=== PATIENT | male | born 2000 | race Caucasian/White ===

== ENCOUNTER 2025-08-17 10:13 | Emergency (ER) | payer OTHER ==
[2025-08-17 10:26] VITALS: RESP 16; TEMP 97.4; O2SAT 97
--- NOTE | 2025-08-17 10:34 | ERPHSYRPT ---
- History of Present Illness Time Seen by Provider: 08/17/25 10:18 Source: patient, family Exam Limitations: no limitations Patient Subjective Stated Complaint: pt was playing softball yesterday and states he dove for a ball, and when he hit ground had a sudden onset of pain to left shoulder Triage Nursing Assessment: pt alert, walked in, no distress, resp easy, skin w/w/p. tender to left shoulder,limited rom, has strong radial pulse Physician History: Patient is here with left shoulder pain. Patient was playing shortstop yesterday at softball. States that he dove for a ball on an outstretched arm. Foster his left shoulder "pop". Since that time he has had pain. He had limited range of motion. He has taken home medication for it. No other fevers, chills, nausea, vomiting. Otherwise in his normal state of health, up-to-date on his tetanus shot. Allergies/Adverse Reactions: No Known Drug Allergies Allergy (Unverified 08/17/25 10:18) Home Medications: No Reportable Medications [No Reported Medications] 08/17/25 [History] Hx Tetanus, Diphtheria Vaccination/Date Given: No Hx Influenza Vaccination/Date Given: No Hx Pneumococcal Vaccination/Date Given: No Immunizations Up to Date: Yes Travel Risk - International Travel Have you traveled outside of the country in past 3 weeks: No - Emerging Infectious Disease Are you exhibiting symptoms associated with any current EIDs: No - Past Medical History Pertinent Past Medical History: No - Past Surgical History Past Surgical History: No - Social History Smoking Status: Never smoker Exposure to second hand smoke: No Drug Use: none - Social Determinants of Health Will the patient participate in the screening: Declined to provide - Nursing Vital Signs Nursing Vital Signs: Initial Vital Signs Temperature 97.4 F 08/17/25 10:25 Pulse Rate 65 08/17/25 10:25 Respiratory Rate 16 08/17/25 10:25 Blood Pressure 131/82 08/17/25 10:25 O2 Sat by Pulse Oximetry 97 08/17/25 10:25 Pain Scale Pain Intensity 8 - Physical Exam SpO2: 97 Comments: 08/17/25 10:33 Review of Systems Constitutional: Negative for fever. HENT: Negative for congestion. Respiratory: Negative for shortness of breath. Cardiovascular: Negative for chest pain. Gastrointestinal: Negative for abdominal pain. Genitourinary: Negative for dysuria. Musculoskeletal: Negative for back pain. Skin: Negative for rash. Neurological: Negative for headaches. Psychiatric/Behavioral: Negative for behavioral problems. All other systems reviewed and are negative. Physical Exam Vitals signs and nursing note reviewed. Constitutional: Appearance: Patient is well-developed. HENT: Head: Normocephalic and atraumatic. Eyes: Conjunctiva/sclera: Conjunctivae normal. Neck: Musculoskeletal: Normal range of motion. Trachea: No tracheal deviation. Cardiovascular: Rate and Rhythm: Normal rate. Heart sounds normal. Pulmonary: Effort: Pulmonary effort is normal. No respiratory distress. Abdominal: Palpations: Abdomen is soft. Musculoskeletal: General: Left shoulder tenderness to palpation. No obvious deformity. Limited range of motion secondary to pain. Neurovascular intact distal to the shoulder. Full range of motion at the elbow and the wrist without pain. 2+ pulses. Cap refill intact. Sensation intact over the shoulder anteriorly and posteriorly Skin: General: Skin is warm and dry. Neurological/ Psychiatric: Mental Status: Mental status, behavior, interaction with environment is appropriate for patient's age and condition - Course Nursing assessment & vital signs reviewed: Yes Ordered Tests: Active Orders 24 hr Category Date Time Status SHOULDER Stat Exams 08/17/25 10:48 Taken Medication Summary Discontinued Medications Generic Name Dose Route Start Last Admin Trade Name Tony PRN Reason Stop Dose Admin Hydrocodone Bitart/Acetaminophen 1 tablet 08/17/25 10:30 08/17/25 10:36 Hydrocodone/Acetamin 10-325 Mg Tablet PO 08/17/25 10:31 1 tablet ONCE STA Administration Hydrocodone Bitart/Acetaminophen Confirm 08/17/25 10:35 Hydrocodone/Acetamin 10-325 Mg Tablet Administered 08/17/25 10:36 Dose 1 tablet .ROUTE .[facility]-MED ONE - Progress Progress: improved Progress Note: 08/17/25 10:34 Differential diagnosis includes strain, sprain, fracture, AC joint separation Plan for oral Mildred, left shoulder x-ray I did review all radiology images. 08/17/25 10:59 On my review of x-ray, I do not see an obvious fracture, or dislocation. AC joint appears to be intact. I did offer to send the x-ray to the radiologist for official read today. We do not have automatic radiology reading services here at [facility] on the weekends. This would add approximately 1 to 2 hours to the patient's stay. Alternatively, I did offer placing the patient in a sling, follow-up with orthopedic surgery closely this week. I explained the risks and benefits of this to the patient and his mother. Ultimately, using shared decision making they would prefer to go home in a sling now and follow-up with orthopedic surgery this week. If patient continues to have pain most likely would benefit from outpatient MRI. I did give strict return precautions. Will have official x-ray overread tomorrow with Dr. Hill. ER physician will follow-up at that point in time should he see anything else on x-ray Counseled pt/family regarding: diagnosis, need for follow-up, rad results - Departure Departure Disposition: Home Clinical Impression: Injury of left shoulder, Left shoulder strain Condition: Stable Critical Care Time: No Instructions: Shoulder Sprain (DC) Additional Instructions: You should call orthopedic surgery first thing tomorrow morning for close follow-up and reexam. Continue to take Tylenol and ibuprofen as needed for pain. You may ice 20 minutes every 2-3 hours. Make an Appointment [phone] ([phone]) Address [address] [place] [address]
[2025-08-17] MEDS ORDERED: NORCO 10-325 MG ONE (10:35)
[2025-08-17] MEDS: NORCO 10-325 MG PO STA (10:36)
[2025-08-17 11:15] VITALS: BP 108/75; PULSE 84
--- NOTE | 2025-08-17 19:15 | XRAY ---
Indication: Pain following fall. Comparison: None 3 view left shoulder obtained. No bony, articular, or soft tissue abnormalities.
== END 2025-08-17 11:15 | disposition home or self-care (01) ==
LOC: ED 10:13
DX: S46.912A Strain of unspecified muscle, fascia and tendon at shoulder and upper arm level, left arm, initial encounter (principal); W18.39XA Other fall on same level, initial encounter; Y93.64 Activity, baseball; Y92.320 Baseball field as the place of occurrence of the external cause